=== PATIENT | male | born 1965 ===

== ENCOUNTER 2022-06-14 04:16 | Day surgery (SDC) | payer BC ==
[2022-06-12 16:02] VITALS: BMI 25.5
[2022-06-14 08:24] VITALS: TEMP 98
[2022-06-14 09:00] VITALS: BP 126/69; PULSE 54
[2022-06-14 09:25] VITALS: RESP 22
== END 2022-06-14 09:25 | disposition home or self-care (01) ==
LOC: JASU-ENDO 04:16
PROVIDERS: ATTEND Internal Medicine Gastroenterology
PROC: 0DBL8ZX Excision of Transverse Colon, Via Natural or Artificial Opening Endoscopic, Diagnostic (ICD-10-PCS; principal; 2022-06-14 08:00)
DX: Z12.11 Encounter for screening for malignant neoplasm of colon (principal); D12.3 Benign neoplasm of transverse colon; K57.30 Diverticulosis of large intestine without perforation or abscess without bleeding
CPT/HCPCS: 88305-TC